=== PATIENT | male | born 1945 | race Caucasian/White ===

== ENCOUNTER 2017-07-13 07:35 | Inpatient (IN) | payer MEDICARE ==
[~2017-07-13] VITALS: Ht 177.8 cm; Wt 101.8 kg
[~2017-07-13 07:35] MED LIST: ASPI-430 PO; CELE200C PO; GABA300C10 PO; MORP15TA3 PO; OXYC5TAB2 PO; TIOT4MIS3 INH; TRAM50TA2 PO
[2017-07-13] MEDS ORDERED: PROMETHAZINE 25 MG/ML, 1ML ONE (08:06)
[2017-07-13 08:10] LABS: MEAN CORPUSCULAR HEMOGLOBIN 31.2 pg (27.5-34.5); MEAN CORPUSCULAR HGB CONC 32.1 g/dL (33.2-36.2); MEAN CORPUSCULAR VOLUME 97.2 fL (81-97); MEAN PLATELET VOLUME 8.7 fL (7.4-10.4); PLATELET COUNT 159 x10^3/uL (130-400); RED BLOOD COUNT 5.91 x10^6/uL (4.38-5.82); RED CELL DISTRIBUTION WIDTH 14.9 % (9.4-14.8)
[2017-07-13 08:22] LABS: MICROSCOPIC INDICATED
[2017-07-13 08:22] LABS: ALBUMIN 3.1 g/dL (3.4-5.0); ANION GAP 10 mmol/L (5-15); CALCIUM 8.3 mg/dL (8.5-10.1); CHLORIDE 96 mmol/L (98-107)
[2017-07-13 08:27] LABS: ALANINE AMINOTRANSFERASE 34 U/L (12-78); ALKALINE PHOSPHATASE 78 U/L (45-117); BILIRUBIN,TOTAL 0.7 mg/dL (0.2-1.0); CREATININE 1.62 mg/dL (0.7-1.3); TOTAL PROTEIN 7.3 g/dL (6.4-8.2); TROPONIN I < 0.015 ng/mL (0.000-0.045)
[2017-07-13] MEDS ORDERED: PROMETHAZINE 25 MG/ML, 1ML IM ONE (08:30)
[2017-07-13 08:33] LABS: ACETONE, SERUM Small (20mg/dL) mg/dL (Negative)
[2017-07-13 08:36] LABS: CULTURE INDICATED? NO
[2017-07-13 08:44] LABS: BASOPHILS # (AUTO) 0.01 x10^3/uL (0-0.1); BASOPHILS % (AUTO) 0 % (0-1); EOSINOPHILS % (AUTO) 0 % (1-7); LYMPHOCYTES # (AUTO) 0.25 x10^3/uL (1-3.4); LYMPHOCYTES % (AUTO) 3 % (22-44); MD SCAN; MONOCYTES # (AUTO) 0.23 x10^3/uL (0.2-0.8); MONOCYTES % (AUTO) 2 % (2-9); NEUTROPHILS # (AUTO) 9.05 x10^3/uL (1.8-6.8); NEUTROPHILS % (AUTO) 95 % (42-75)
[2017-07-13 08:47] LABS: PROTHROMBIN TIME 10.4 Seconds (9.6-11.5)
[2017-07-13] MEDS ORDERED: SODIUM CHLORIDE 0.9% 1,000ML IVBOLUS ONE (09:00)
[2017-07-13] MEDS ORDERED: OMNIPAQUE 350 MG/ML, 100ML BOTTLE ONE (09:31)
[2017-07-13 10:01] LABS: HEMOGLOBIN A1C 9.5 % (4.2-6.3)
[2017-07-13] MEDS ORDERED: DOCUSATE 100 MG CAPSULE PO PRN (11:00)
[2017-07-13] MEDS ORDERED: POLYETHYLENE GLYCOL 17 GM PACKET PO PRN (11:00)
[2017-07-13] MEDS ORDERED: TIOTROPIUM BR INH PRN (11:00)
[2017-07-13] MEDS ORDERED: BISACODYL 10 MG SUPP PR PRN (11:00)
[2017-07-13] MEDS ORDERED: LABETALOL 5MG/ML, 20ML IVPush PRN (11:00)
[2017-07-13] MEDS ORDERED: ONDANSETRON 2MG/ML, 2ML IVPush PRN (11:00)
[2017-07-13] MEDS ORDERED: OXYcodone IR 5MG TABLET PO PRN (11:00)
[2017-07-13] MEDS ORDERED: OLODATEROL HCL INH PRN (11:00)
[2017-07-13] MEDS ORDERED: ASPIRIN 81 MG TABLET EC PO PRN (11:00)
[2017-07-13] MEDS ORDERED: ACETAMINOPHEN 325 MG TABLET PO PRN (11:00)
[2017-07-13] MEDS: SODIUM CHLORIDE 0.9% 1,000 ML IV SCH ×2 (11:31→21:34)
[2017-07-13] MEDS: INSULIN LISPRO 100 UNITS/ML, PEN SQ-INSULIN SCH ×3 (11:44→21:34)
[2017-07-13] MEDS: HEPARIN 5,000 UNITS/ML, 1ML SQ SCH ×2 (11:56→21:34)
[2017-07-13 12:00] VITALS: BP 139/91
[2017-07-13 12:14] LABS: TROPONIN I 0.017 ng/mL (0.000-0.045)
[2017-07-13] MEDS ORDERED: ONDANSETRON ODT 4 MG ONE (12:31)
[2017-07-13] MEDS: ONDANSETRON ODT 4 MG PO PRN (12:35)
[2017-07-13] MEDS ORDERED: PROCHLORPERAZINE 5 MG/ML, 2ML IVPush ONE (13:30)
[2017-07-13 14:12] VITALS: BP 149/92
[2017-07-13] MEDS ORDERED: ALBUTEROL/IPRATROPIUM 2.5MG/0.5MG, 3 ML ONE (14:21)
[2017-07-13] MEDS: ALBUTEROL/IPRATROPIUM 2.5MG/0.5MG, 3 ML NPPB SCH ×2 (14:33→20:30)
[2017-07-13 18:17] LABS: TROPONIN I 0.025 ng/mL (0.000-0.045)
[2017-07-14 01:12] VITALS: BP 147/84
[2017-07-14] MEDS: HEPARIN 5,000 UNITS/ML, 1ML SQ SCH ×3 (05:18→21:06)
[2017-07-14 05:40] LABS: BASOPHILS % (AUTO) 0 % (0-1); EOSINOPHILS % (AUTO) 0 % (1-7); LYMPHOCYTES # (AUTO) 0.75 x10^3/uL (1-3.4); LYMPHOCYTES % (AUTO) 8 % (22-44); MD NO; MEAN CORPUSCULAR HEMOGLOBIN 32.2 pg (27.5-34.5); MEAN CORPUSCULAR HGB CONC 32.9 g/dL (33.2-36.2); MEAN CORPUSCULAR VOLUME 97.8 fL (81-97); MEAN PLATELET VOLUME 8.9 fL (7.4-10.4); MONOCYTES # (AUTO) 0.76 x10^3/uL (0.2-0.8); MONOCYTES % (AUTO) 8 % (2-9); NEUTROPHILS # (AUTO) 8.24 x10^3/uL (1.8-6.8); NEUTROPHILS % (AUTO) 85 % (42-75); PLATELET COUNT 145 x10^3/uL (130-400); RED BLOOD COUNT 5.32 x10^6/uL (4.38-5.82)
[2017-07-14 05:55] LABS: CHLORIDE 103 mmol/L (98-107)
[2017-07-14 06:03] LABS: ALANINE AMINOTRANSFERASE 28 U/L (12-78); ALBUMIN 2.5 g/dL (3.4-5.0); ALKALINE PHOSPHATASE 54 U/L (45-117); ANION GAP 8 mmol/L (5-15); BILIRUBIN,TOTAL 0.6 mg/dL (0.2-1.0); CALCIUM 7.9 mg/dL (8.5-10.1); CREATININE 0.84 mg/dL (0.7-1.3); TOTAL PROTEIN 5.8 g/dL (6.4-8.2)
[2017-07-14] MEDS: ALBUTEROL/IPRATROPIUM 2.5MG/0.5MG, 3 ML NPPB SCH ×4 (07:05→20:39)
[2017-07-14 07:17] VITALS: BP 138/88
[2017-07-14] MEDS: INSULIN LISPRO 100 UNITS/ML, PEN SQ-INSULIN SCH ×4 (07:57→21:06)
[2017-07-14 13:29] VITALS: BP 127/81
[2017-07-14] MEDS ORDERED: MAALOX/HYOSCYAMINE/LIDOCAINE 45 ML BTL PO ONE (13:30)
[2017-07-14] MEDS ORDERED: DICY10CA3 PO (13:53)
[2017-07-14] MEDS ORDERED: LOSA50TA6 PO (13:53)
[2017-07-14] MEDS ORDERED: GABA300C10 PO (13:53)
[2017-07-14] MEDS ORDERED: POTA10CA PO (13:53)
[2017-07-14] MEDS ORDERED: OXYB5TAB PO (13:53)
[2017-07-14] MEDS ORDERED: PHEN37.53 PO (13:53)
[2017-07-14] MEDS ORDERED: FURO20TA3 PO (13:53)
[2017-07-14] MEDS: SODIUM CHLORIDE 0.9% 1,000 ML IV SCH (14:14)
[2017-07-14] MEDS: SUCRALFATE 1 GM/10 ML UDC PO SCH ×2 (16:45→21:06)
[2017-07-14] MEDS ORDERED: GADOBUTROL 10 MMOL/10 ML PFS ONE (19:36)
[2017-07-14 20:10] VITALS: BP 147/83
[2017-07-14] MEDS: DICYCLOMINE 10 MG CAPSULE PO SCH (21:06)
[2017-07-14] MEDS: GABAPENTIN 300 MG CAPSULE PO SCH (21:06)
[2017-07-14] MEDS: ONDANSETRON ODT 4 MG PO PRN (23:57)
[2017-07-15 00:20] VITALS: BP 138/79
[2017-07-15] MEDS: SODIUM CHLORIDE 0.9% 1,000 ML IV SCH (03:37)
[2017-07-15 05:12] LABS: BASOPHILS # (AUTO) 0.02 x10^3/uL (0-0.1); BASOPHILS % (AUTO) 0 % (0-1); EOSINOPHILS # (AUTO) 0.04 x10^3/uL (0-0.4); EOSINOPHILS % (AUTO) 1 % (1-7); LYMPHOCYTES % (AUTO) 12 % (22-44); MD NO; MEAN CORPUSCULAR HEMOGLOBIN 31.9 pg (27.5-34.5); MEAN CORPUSCULAR HGB CONC 32.2 g/dL (33.2-36.2); MEAN CORPUSCULAR VOLUME 98.9 fL (81-97); MEAN PLATELET VOLUME 8.5 fL (7.4-10.4); MONOCYTES # (AUTO) 0.97 x10^3/uL (0.2-0.8); MONOCYTES % (AUTO) 11 % (2-9); NEUTROPHILS % (AUTO) 76 % (42-75); PLATELET COUNT 133 x10^3/uL (130-400); RED BLOOD COUNT 5.39 x10^6/uL (4.38-5.82); RED CELL DISTRIBUTION WIDTH 15.4 % (9.4-14.8)
[2017-07-15 05:25] LABS: ANION GAP 5 mmol/L (5-15); CALCIUM 8.1 mg/dL (8.5-10.1); CHLORIDE 102 mmol/L (98-107)
[2017-07-15 05:27] LABS: CREATININE 0.78 mg/dL (0.7-1.3)
[2017-07-15] MEDS: ALBUTEROL/IPRATROPIUM 2.5MG/0.5MG, 3 ML NPPB SCH ×4 (06:15→19:41)
[2017-07-15] MEDS: HEPARIN 5,000 UNITS/ML, 1ML SQ SCH ×3 (06:26→21:33)
[2017-07-15] MEDS: DICYCLOMINE 10 MG CAPSULE PO SCH ×4 (06:26→21:32)
[2017-07-15 07:43] VITALS: BP 168/97
[2017-07-15] MEDS: SUCRALFATE 1 GM/10 ML UDC PO SCH ×4 (08:02→21:33)
[2017-07-15] MEDS: LOSARTAN 50MG TABLET PO SCH (08:02)
[2017-07-15] MEDS: GABAPENTIN 300 MG CAPSULE PO SCH ×3 (08:02→21:32)
[2017-07-15] MEDS: INSULIN LISPRO 100 UNITS/ML, PEN SQ-INSULIN SCH ×4 (08:13→21:38)
[2017-07-15] MEDS ORDERED: REGADENOSON 0.4 MG/5 ML SYRINGE ONE (09:48)
[2017-07-15 13:05] VITALS: BP 135/87
[2017-07-15 20:03] VITALS: BP 145/89
[2017-07-16 02:24] VITALS: BP 156/90
[2017-07-16] MEDS: SUCRALFATE 1 GM/10 ML UDC PO SCH ×4 (04:46→20:17)
[2017-07-16] MEDS: DICYCLOMINE 10 MG CAPSULE PO SCH ×4 (04:47→20:16)
[2017-07-16] MEDS: HEPARIN 5,000 UNITS/ML, 1ML SQ SCH (04:47)
[2017-07-16 05:42] LABS: ANION GAP 5 mmol/L (5-15); CALCIUM 7.7 mg/dL (8.5-10.1); CHLORIDE 106 mmol/L (98-107); CREATININE 0.73 mg/dL (0.7-1.3)
[2017-07-16 05:53] LABS: BASOPHILS # (AUTO) 0.01 x10^3/uL (0-0.1); BASOPHILS % (AUTO) 0 % (0-1); EOSINOPHILS # (AUTO) 0.07 x10^3/uL (0-0.4); EOSINOPHILS % (AUTO) 1 % (1-7); LYMPHOCYTES # (AUTO) 1.13 x10^3/uL (1-3.4); LYMPHOCYTES % (AUTO) 19 % (22-44); MD NO; MEAN CORPUSCULAR HGB CONC 32.7 g/dL (33.2-36.2); MEAN CORPUSCULAR VOLUME 97.7 fL (81-97); MEAN PLATELET VOLUME 8.9 fL (7.4-10.4); MONOCYTES # (AUTO) 0.59 x10^3/uL (0.2-0.8); MONOCYTES % (AUTO) 10 % (2-9); NEUTROPHILS # (AUTO) 4.25 x10^3/uL (1.8-6.8); NEUTROPHILS % (AUTO) 70 % (42-75); PLATELET COUNT 143 x10^3/uL (130-400); RED BLOOD COUNT 5.19 x10^6/uL (4.38-5.82); RED CELL DISTRIBUTION WIDTH 15.2 % (9.4-14.8)
[2017-07-16] MEDS: ALBUTEROL/IPRATROPIUM 2.5MG/0.5MG, 3 ML NPPB SCH (07:00)
[2017-07-16 07:54] VITALS: BP 142/81
[2017-07-16] MEDS: LOSARTAN 50MG TABLET PO SCH (09:50)
[2017-07-16] MEDS: INSULIN LISPRO 100 UNITS/ML, PEN SQ-INSULIN SCH ×4 (09:50→20:24)
[2017-07-16] MEDS: GLIPizide ER 5 MG TABLET PO SCH (09:50)
[2017-07-16] MEDS: GABAPENTIN 300 MG CAPSULE PO SCH ×3 (09:51→20:16)
[2017-07-16] MEDS ORDERED: ALBUTEROL/IPRATROPIUM 2.5MG/0.5MG, 3 ML NPPB PRN (11:00)
[2017-07-16 15:00] VITALS: BP 152/91
[2017-07-16] MEDS ORDERED: SUCRALFATE 1 GM/10 ML UDC PO SCH (16:00)
[2017-07-16] MEDS: OMEPRAZOLE 20 MG CAPSULE.DR PO SCH (16:50)
[2017-07-16 18:54] VITALS: BP 144/96
[2017-07-17 01:18] VITALS: BP 146/93
[2017-07-17] MEDS: DICYCLOMINE 10 MG CAPSULE PO SCH ×2 (05:29→14:06)
[2017-07-17 07:00] VITALS: BP 153/89
[2017-07-17] MEDS: INSULIN LISPRO 100 UNITS/ML, PEN SQ-INSULIN SCH ×2 (07:00→11:00)
[2017-07-17] MEDS: SUCRALFATE 1 GM/10 ML UDC PO SCH (07:00)
[2017-07-17 07:06] LABS: BASOPHILS # (AUTO) 0.03 x10^3/uL (0-0.1); BASOPHILS % (AUTO) 1 % (0-1); EOSINOPHILS # (AUTO) 0.14 x10^3/uL (0-0.4); EOSINOPHILS % (AUTO) 2 % (1-7); LYMPHOCYTES # (AUTO) 1.16 x10^3/uL (1-3.4); LYMPHOCYTES % (AUTO) 20 % (22-44); MD NO; MEAN CORPUSCULAR HEMOGLOBIN 31.4 pg (27.5-34.5); MEAN CORPUSCULAR HGB CONC 32.3 g/dL (33.2-36.2); MEAN CORPUSCULAR VOLUME 97.3 fL (81-97); MEAN PLATELET VOLUME 8.2 fL (7.4-10.4); MONOCYTES # (AUTO) 0.53 x10^3/uL (0.2-0.8); MONOCYTES % (AUTO) 9 % (2-9); NEUTROPHILS # (AUTO) 4.04 x10^3/uL (1.8-6.8); NEUTROPHILS % (AUTO) 69 % (42-75); PLATELET COUNT 127 x10^3/uL (130-400); RED BLOOD COUNT 5.47 x10^6/uL (4.38-5.82); RED CELL DISTRIBUTION WIDTH 14.9 % (9.4-14.8)
[2017-07-17 07:17] LABS: ALBUMIN 2.4 g/dL (3.4-5.0); ANION GAP 9 mmol/L (5-15); CALCIUM 8.4 mg/dL (8.5-10.1); CHLORIDE 108 mmol/L (98-107)
[2017-07-17 07:20] LABS: ALANINE AMINOTRANSFERASE 35 U/L (12-78); ALKALINE PHOSPHATASE 60 U/L (45-117); BILIRUBIN,TOTAL 0.5 mg/dL (0.2-1.0); CREATININE 0.61 mg/dL (0.7-1.3)
[2017-07-17 07:23] LABS: INTERNATIONAL NORMALIZED RATIO 0.99 (0.93-1.1); PROTHROMBIN TIME 10.3 Seconds (9.6-11.5)
[2017-07-17] MEDS: OMEPRAZOLE 20 MG CAPSULE.DR PO SCH (07:30)
[2017-07-17] MEDS: GABAPENTIN 300 MG CAPSULE PO SCH (09:00)
[2017-07-17] MEDS ORDERED: MIDAZOLAM 1 MG/ML, 2ML ONE (10:33)
[2017-07-17] MEDS ORDERED: PROPOFOL 50 ML ONE (10:33)
[2017-07-17] MEDS ORDERED: PROPOFOL 10 MG/ML, 20ML ONE (10:55)
[2017-07-17] MEDS ORDERED: OMEP-110 PO (11:45)
[2017-07-17] MEDS ORDERED: SUCR1TAB33 PO (11:49)
[2017-07-17] MEDS ORDERED: GLIP5TAB22 PO (11:53)
[2017-07-17] MEDS ORDERED: ALBUTEROL/IPRATROPIUM 2.5MG/0.5MG, 3 ML ONE (11:55)
[2017-07-17] MEDS ORDERED: EPHEDRINE 50 MG/ML, 1ML IVPush PRN (12:00)
[2017-07-17] MEDS ORDERED: LABETALOL 5MG/ML, 20ML IV PRN (12:00)
[2017-07-17] MEDS ORDERED: HYDROcodone/APAP 7.5-325MG/15ML UDC PO PRN (12:00)
[2017-07-17] MEDS ORDERED: ONDANSETRON ODT 8 MG PO PRN (12:00)
[2017-07-17] MEDS ORDERED: hydrALAzine 20 MG/ML, 1ML IV PRN (12:00)
[2017-07-17] MEDS ORDERED: ALBUTEROL SULFATE 2.5 MG/3 ML NPPB PRN (12:00)
[2017-07-17] MEDS ORDERED: FENTANYL PF 100 MCG/2ML IV PRN (12:00)
[2017-07-17] MEDS ORDERED: PROMETHAZINE 25 MG/ML, 1ML IV PRN (12:00)
[2017-07-17] MEDS ORDERED: ALBUTEROL/IPRATROPIUM 2.5MG/0.5MG, 3 ML NPPB PRN (12:00)
[2017-07-17] MEDS ORDERED: ACETAMINOPHEN 325 MG TABLET PO PRN (12:00)
[2017-07-17] MEDS ORDERED: OXYcodone 5 MG/5 ML ORAL.SOL UDC PO PRN (12:00)
[2017-07-17] MEDS: GLIPizide ER 5 MG TABLET PO SCH (12:00)
[2017-07-17] MEDS ORDERED: MIDAZOLAM 1 MG/ML, 2ML IV PRN (12:00)
[2017-07-17] MEDS ORDERED: SUCRALFATE 1 GM/10 ML UDC ONE (12:33)
[2017-07-17 12:36] VITALS: BP 157/96
[2017-07-17] MEDS: LOSARTAN 50MG TABLET PO SCH (12:40)
[2017-07-17 13:20] VITALS: BP 138/93
[2017-07-17] MEDS ORDERED: SUCRALFATE 1 GM/10 ML UDC PO SCH (16:00)
== END 2017-07-17 15:35 | DRG 73 ==
LOC: ED 10:04 → EDIP 10:05 → ED 10:15 → 5SO 11:10 → 3NW 07-17 11:58
PROVIDERS: ADMIT Internal Medicine; ATTEND Internal Medicine
PROC: 0DB68ZX Excision of Stomach, Via Natural or Artificial Opening Endoscopic, Diagnostic (ICD-10-PCS; 2017-07-17)
PROC: 0DB98ZX Excision of Duodenum, Via Natural or Artificial Opening Endoscopic, Diagnostic (ICD-10-PCS; principal; 2017-07-17 10:30)
DX: G90.8 Other disorders of autonomic nervous system (principal); N17.0 Acute kidney failure with tubular necrosis; J96.20 Acute and chronic respiratory failure, unspecified whether with hypoxia or hypercapnia; E43 Unspecified severe protein-calorie malnutrition; E11.65 Type 2 diabetes mellitus with hyperglycemia; E87.1 Hypo-osmolality and hyponatremia; D75.1 Secondary polycythemia; I50.32 Chronic diastolic (congestive) heart failure; I11.0 Hypertensive heart disease with heart failure; I27.20 Pulmonary hypertension, unspecified; E86.0 Dehydration; J98.11 Atelectasis; K22.10 Ulcer of esophagus without bleeding; K29.70 Gastritis, unspecified, without bleeding; K26.9 Duodenal ulcer, unspecified as acute or chronic, without hemorrhage or perforation; E78.5 Hyperlipidemia, unspecified; G89.4 Chronic pain syndrome; M54.9 Dorsalgia, unspecified; K29.80 Duodenitis without bleeding; J44.9 Chronic obstructive pulmonary disease, unspecified; K21.9 Gastro-esophageal reflux disease without esophagitis; R32 Unspecified urinary incontinence; E86.9 Volume depletion, unspecified; Z68.32 Body mass index [BMI] 32.0-32.9, adult; Z87.891 Personal history of nicotine dependence; Z80.0 Family history of malignant neoplasm of digestive organs; Z82.49 Family history of ischemic heart disease and other diseases of the circulatory system; Z83.3 Family history of diabetes mellitus
CPT/HCPCS: 36415; 36600; 70450; 70553; 71045; 71275; 74018; 74241; 78452; 80048; 80053; 81001; 82010; 82803; 82947; 82962; 83036; 83735; 83880; 84100; 84484; 85025; 85610; 88305; 93005; 93017; 93880; 94640; 96360; 96372; A9585; C8929; J1644; J2250; J2550; J2704; J2785; J7620; Q0162; Q9967; A9502; J0780; J1815; J7030